=== PATIENT | female | born 1980 | race Caucasian/White ===

== ENCOUNTER 2025-11-09 10:49 | Emergency (ER) | payer BC ==
[~2025-11-09] VITALS: Ht 152.4 cm; Wt 68.0 kg
[2025-11-09 11:38] VITALS: TEMP 98.1
[2025-11-09 11:39] LABS: PLATELET COUNT (AUTO) 231 K/uL (150-450); RED BLOOD CELL COUNT(AUTO) 4.43 MIL/uL (4.0-5.2); RED CELL DISTRIBUTION WIDTH 13.5 % (11.5-15.0); WHITE BLOOD COUNT (AUTO) 5.3 K/uL (4.3-11.0)
[2025-11-09 11:48] LABS: CALCIUM, SERUM 8.6 mg/dL (8.5-10.1); CREATININE 0.8 mg/dL (0.6-1.3); SODIUM SERUM 140.0 mmol/L (136-145); UREA NITROGEN, BLOOD 17.0 mg/dL (7-18)
[2025-11-09 12:25] LABS: ASPARTATE AMINOTRANSFERASE 21.0 U/L (15-37); TOTAL PROTEIN, SERUM 7.7 g/dL (6.4-8.2)
[2025-11-09 12:57] LABS: APPEARANCE,URINE SLIGHTLY CLOUDY (CLEAR); BLOOD, URINE NEGATIVE Ery/uL (NEGATIVE); LEUKOCYTE ESTERASE ,URINE NEGATIVE (NEGATIVE); NITRITE, URINE NEGATIVE (NEGATIVE); UGLUCOSE NEGATIVE (NEGATIVE)
[2025-11-09 13:03] LABS: PREGNANCY TEST URINE QUAL NEGATIVE (NEGATIVE)
[2025-11-09] MEDS ORDERED: PANT40TA2 PO (13:06)
[2025-11-09 13:13] LABS: SQUAMOUS EPITHELIAL CELL,UR Many /HPF (None Seen)
[2025-11-09 13:14] LABS: ADD URINE CULTURE YES
[2025-11-09 13:19] VITALS: BP 113/72; O2SAT 98
== END 2025-11-09 13:20 | disposition home or self-care (01) ==
LOC: ER 11:04
DX: R10.13 Epigastric pain (principal)
CPT/HCPCS: 36415; 80048-TC; 80076-TC; 81001; 83690-TC; 84703-TC; 85025-TC